=== PATIENT | male | born 1975 | race Hispanic/Latino ===

== ENCOUNTER 2024-07-12 16:56 | Inpatient (IN) | payer SELFPAY ==
[~2024-07-12 16:56] MED LIST: Iopamidol-370 76% 500 ML MDV (1 ML CHARGE) ONE
[2024-07-12 18:13] LABS: Troponin I Less than 0.010 ng/mL (< 0.028)
[2024-07-12 18:16] LABS: Anion Gap 28 mmol/L (10-20); BUN (Urea Nitrogen) 21 mg/dL (8.9-20.6); Calc. Creatinine Clearance 0 mL/min (70-130); Calcium 8.1 mg/dL (7.8-10.44); Carbon Dioxide Less than 8 mmol/L (22-29); Chloride 105 mmol/L (98-107); Estimated GFR 71; Glucose 134 mg/dL (70-105); Magnesium 1.8 mg/dL (1.6-2.6); Potassium 3.9 mmol/L (3.5-5.1); Sodium 134 mmol/L (136-145)
[2024-07-12] MEDS ORDERED: Dextrose 50% Abboject 50 ML SYRINGE SLOW IVP PRN ×2 (19:00→21:04)
[2024-07-12] MEDS ORDERED: D5 1/2 NS w/20 mEq KCL 1,000 ML ONE (19:03)
[2024-07-12] MEDS ORDERED: Morphine 4 MG/ML VIAL ONE (20:48)
[2024-07-12] MEDS ORDERED: Ondansetron PF 4 MG/2 ML Vial ONE (20:48)
[2024-07-12] MEDS ORDERED: INSULIN REGULAR IN 0.9 % NACL 100 ML ONE (20:49)
[2024-07-12] MEDS ORDERED: Acetaminophen 650 MG Suppository PR PRN (21:04)
[2024-07-12] MEDS ORDERED: Ondansetron ODT 4 MG TAB PO PRN (21:04)
[2024-07-12] MEDS ORDERED: traMADol HCl 50 MG TAB PO PRN (21:04)
[2024-07-12] MEDS ORDERED: NS 0.9% w/ 20 MEQ KCL 1,000 ML IV PRN (21:04)
[2024-07-12] MEDS ORDERED: Dextrose 5 %-0.45 % NaCl 1,000 ML IV PRN (21:04)
[2024-07-12] MEDS ORDERED: Acetaminophen 325 MG TAB PO PRN (21:04)
[2024-07-12] MEDS ORDERED: Electrolyte Replacement Protocol 1 EACH IVPB PRN (21:04)
[2024-07-12] MEDS ORDERED: Ondansetron PF 4 MG/2 ML Vial IVP PRN (21:04)
[2024-07-12] MEDS ORDERED: INSULIN REGULAR IN 0.9 % NACL 100 ML IVPB SCH (21:15)
[2024-07-12 21:52] LABS: Anion Gap 25 mmol/L (10-20); BUN (Urea Nitrogen) 17 mg/dL (8.9-20.6); Calc. Creatinine Clearance 0 mL/min (70-130); Calcium 8.2 mg/dL (7.8-10.44); Carbon Dioxide Less than 8 mmol/L (22-29); Chloride 104 mmol/L (98-107); Estimated GFR 77; Glucose 162 mg/dL (70-105); Potassium 3.6 mmol/L (3.5-5.1); Sodium 130 mmol/L (136-145)
[2024-07-12] MEDS: D5 1/2 NS w/20 mEq KCL 1,000 ML IV PRN (23:50)
[2024-07-13 00:47] VITALS: BMI 20.7
[2024-07-13] MEDS: traMADol HCl 50 MG TAB PO PRN (00:49)
[2024-07-13 02:16] LABS: Potassium 3.4 mmol/L (3.5-5.1)
[2024-07-13 02:21] LABS: Chloride 105 mmol/L (98-107)
[2024-07-13 02:26] LABS: Sodium 131 mmol/L (136-145)
[2024-07-13 02:36] LABS: Glucose 195 mg/dL (70-105)
[2024-07-13 02:41] LABS: Anion Gap 20 mmol/L (10-20)
[2024-07-13 02:47] LABS: Calc. Creatinine Clearance 73 mL/min (70-130); Estimated GFR 83
[2024-07-13 02:51] LABS: BUN (Urea Nitrogen) 13 mg/dL (8.9-20.6)
[2024-07-13 02:52] LABS: Carbon Dioxide 9 mmol/L (22-29)
[2024-07-13 05:42] LABS: Hemoglobin A1c 11.2 % (4.0-6.0)
[2024-07-13 06:00] LABS: Anion Gap 16 mmol/L (10-20); BUN (Urea Nitrogen) 11 mg/dL (8.9-20.6); Calc. Creatinine Clearance 78 mL/min (70-130); Calcium 8.1 mg/dL (7.8-10.44); Carbon Dioxide 13 mmol/L (22-29); Chloride 106 mmol/L (98-107); Estimated GFR 90; Glucose 156 mg/dL (70-105); Potassium 3.2 mmol/L (3.5-5.1); Sodium 132 mmol/L (136-145)
[2024-07-13 06:10] LABS: Anion Gap 16 mmol/L (10-20); BUN (Urea Nitrogen) 11 mg/dL (8.9-20.6); Calc. Creatinine Clearance 79 mL/min (70-130); Calcium 8.1 mg/dL (7.8-10.44); Carbon Dioxide 13 mmol/L (22-29); Cardiac Risk 2.8 (Less than 4.5); Chloride 106 mmol/L (98-107); Cholesterol 162 mg/dl (< 200 Desired); Estimated GFR 91; Glucose 156 mg/dL (70-105); HDL Cholesterol 57 mg/dL (>60 Neg Risk); LDL Cholesterol, Calculated 88 mg/dL; Magnesium 1.4 mg/dL (1.6-2.6); Potassium 3.1 mmol/L (3.5-5.1); Sodium 132 mmol/L (136-145); Triglycerides 83 mg/dL (Less than 150)
[2024-07-13 06:15] LABS: #Basophils Less than 0.03 10x3/uL (0.0-0.2); #Eosinophils Less than 0.03 10x3/uL (0.0-0.7); %Basophils 0.1 % (0.0-1.0); %Eosinophils 0.1 % (0.0-10.0); %Lymphocytes 10.6 % (21.0-51.0); %Monocytes 7.9 % (0.0-10.0); %Neutrophils 80.9 % (42.0-75.0); Hematocrit 40.9 % (42.0-52.0); Hemoglobin 14.5 g/dL (14.0-18.0); Mean Corpuscular HGB CONC 35.5 g/dL (32.0-36.0); Mean Corpuscular Hemoglobin 35.7 pg (27.0-31.0); Mean Corpuscular Volume 100.7 fL (78.0-98.0); Mean Platelet Volume 9.9 fL (7.4-10.4); Platelet Count 128 10x3/uL (130-400); RBC Distribution Width 12.2 % (11.5-14.5); Red Blood Cell (RBC) Count 4.06 mill/uL (4.70-6.10)
[2024-07-13] MEDS: Potassium Phosphate 15 MMOL in Sodium Chloride 0.9% 100 ML IVPB SCH ×2 (06:25→11:37)
[2024-07-13] MEDS: Magnesium Sulfate In Water 4 GM in Premix 1 BAG IVPB SCH (08:28)
[2024-07-13] MEDS: Enoxaparin 40 MG (0.4 mL) SYRINGE SC SCH (09:12)
[2024-07-13] MEDS: Famotidine 20 MG TAB PO SCH (09:12)
[2024-07-13] MEDS: Potassium Chloride 20 MEQ in Premix 1 BAG IVPB SCH (10:07)
[2024-07-13 11:45] VITALS: BMI 20.7
[2024-07-13] MEDS: Insulin Glargine 30 UNITS/0.3 ML VIAL SC SCH (16:18)
[2024-07-13] MEDS ORDERED: Glucagon 1 MG/ML KIT IM PRN (16:30)
[2024-07-13] MEDS ORDERED: Dextrose 5% in Water 1,000 ML IV PRN (16:30)
[2024-07-13] MEDS: Insulin Regular, Human 100 UNIT/ML 10 ML VIAL SC PRN (18:05)
[2024-07-14 04:19] LABS: #Basophils Less than 0.03 10x3/uL (0.0-0.2); %Basophils 0.3 % (0.0-1.0); %Eosinophils 0.7 % (0.0-10.0); %Lymphocytes 25.3 % (21.0-51.0); %Monocytes 8.7 % (0.0-10.0); %Neutrophils 64.9 % (42.0-75.0); Hematocrit 43.1 % (42.0-52.0); Hemoglobin 15.4 g/dL (14.0-18.0); Mean Corpuscular HGB CONC 35.7 g/dL (32.0-36.0); Mean Corpuscular Hemoglobin 35.2 pg (27.0-31.0); Mean Corpuscular Volume 98.6 fL (78.0-98.0); Mean Platelet Volume 10.3 fL (7.4-10.4); Platelet Count 116 10x3/uL (130-400); RBC Distribution Width 12.1 % (11.5-14.5); Red Blood Cell (RBC) Count 4.37 mill/uL (4.70-6.10)
[2024-07-14 05:19] LABS: ALT (SGPT) 35 U/L (8-55); AST (SGOT) 31 U/L (5-34); Albumin 3.6 g/dL (3.5-5.0); Alkaline Phosphatase 96 U/L (40-110); Anion Gap 16 mmol/L (10-20); BUN (Urea Nitrogen) 9 mg/dL (8.9-20.6); Bilirubin, Total 0.6 mg/dL (0.2-1.2); Calc. Creatinine Clearance 111 mL/min (70-130); Calcium 8.8 mg/dL (7.8-10.44); Carbon Dioxide 19 mmol/L (22-29); Chloride 107 mmol/L (98-107); Estimated GFR 113; Globulin 3.2 g/dL (2.4-3.5); Glucose 129 mg/dL (70-105); Lipase 290 U/L (8-78); Phosphorus 1.5 mg/dL (2.3-4.7); Potassium 3.5 mmol/L (3.5-5.1); Protein, Total 6.8 g/dL (6.0-8.3); Sodium 138 mmol/L (136-145)
[2024-07-14] MEDS: Sodium Phosphate 30 MMOL in Sodium Chloride 0.9% 250 ML 250 ML IVPB SCH (06:16)
[2024-07-14] MEDS ORDERED: Insulin Glargine 30 UNITS/0.3 ML VIAL SC SCH (09:00)
[2024-07-14] MEDS: Lisinopril 5 MG TAB PO SCH (09:09)
[2024-07-14] MEDS: Magnesium 2 GM/50 ML(in water) 2 GM in Premix 1 BAG IVPB SCH (09:09)
[2024-07-14] MEDS: Insulin Glargine 30 UNITS/0.3 ML VIAL SC SCH (09:09)
[2024-07-14] MEDS: cefTRIAXone\\ROCEPHIN 1 GM in Sodium Chloride 0.9% 100 ML IVPB SCH (17:27)
[2024-07-15 07:48] VITALS: BP 126/88; TEMP 97.5
[2024-07-15 08:40] LABS: ALT (SGPT) 49 U/L (8-55); AST (SGOT) 54 U/L (5-34); Albumin 3.7 g/dL (3.5-5.0); Alkaline Phosphatase 97 U/L (40-110); Anion Gap 19 mmol/L (10-20); BUN (Urea Nitrogen) 14 mg/dL (8.9-20.6); Bilirubin, Total 0.7 mg/dL (0.2-1.2); Calc. Creatinine Clearance 110 mL/min (70-130); Carbon Dioxide 18 mmol/L (22-29); Chloride 103 mmol/L (98-107); Estimated GFR 113; Globulin 3.3 g/dL (2.4-3.5); Glucose 146 mg/dL (70-105); Potassium 3.2 mmol/L (3.5-5.1); Sodium 137 mmol/L (136-145)
[2024-07-15 08:43] LABS: Lipase 419 U/L (8-78)
[2024-07-15] MEDS: PHOS-NAK 1 PKT PACK PO SCH (09:43)
[2024-07-15] MEDS: Potassium Chloride 20 MEQ TAB PO SCH (09:43)
== END 2024-07-15 11:09 | disposition home or self-care (01) | DRG 438 ==
LOC: ERS 16:56 → SUATTDRO 16:56 → CCU 21:03 → IMCU/EMU 07-13 20:08 → T4-B 07-14 21:41
PROVIDERS: ADMIT Family Medicine; ATTEND Family Medicine
DX: K85.90 Acute pancreatitis without necrosis or infection, unspecified (principal); E11.10 Type 2 diabetes mellitus with ketoacidosis without coma; N39.0 Urinary tract infection, site not specified; E11.65 Type 2 diabetes mellitus with hyperglycemia; I10 Essential (primary) hypertension; E78.5 Hyperlipidemia, unspecified; F17.210 Nicotine dependence, cigarettes, uncomplicated; E87.6 Hypokalemia; E83.42 Hypomagnesemia; E83.39 Other disorders of phosphorus metabolism; Z79.4 Long term (current) use of insulin; Z79.899 Other long term (current) drug therapy
CPT/HCPCS: 36415; 36416; 74177; 80048; 80053; 80061; 83036; 83690; 83735; 84100; 84443; 85025; 96365; 96366; 96367; 96375; J0696; J1650; J1815; J2272; J2405; J3475; J3480; J7050; J7999; Q9967